=== PATIENT | female | born 1940 | race Caucasian/White ===

== ENCOUNTER 2024-11-20 17:09 | Emergency (ER) | payer OTHER ==
[~2024-11-20] VITALS: Ht 157.5 cm; Wt 69.0 kg
[2024-11-20 17:12] VITALS: TEMP 36.8; O2SAT 99
[2024-11-20 17:56] LABS: BASOPHILS % 0.5 % (0.0-2.0); EOSINOPHILS % 0.7 % (0.0-5.0); HEMATOCRIT. 46.3 % (36.0-48.0); HEMOGLOBIN. 15.6 g/dL (12.0-16.0); LYMPHOCYTES % 7.9 % (20.0-50.0); MEAN PLATELET VOLUME 8.4 fl (7.4-10.4); MONOCYTES % 8.2 % (2.0-8.0); NEUTROPHILS % 82.7 % (40.0-76.0); PLATELET 253 x1000/uL (130-400); RED BLOOD CELL COUNT 5.14 mill/uL (4.2-5.4); RED CELL DISTRIBUTION WIDTH 14.0 % (11.6-14.6)
[2024-11-20 18:10] LABS: CREATININE 1.0 mg/dL (0.6-1.0)
[2024-11-20 18:11] LABS: ETHANOL BLOOD < 10 mg/dL (<10); UREA NITROGEN BLOOD 8 mg/dL (9-23)
[2024-11-20 18:12] LABS: ASPARTATE AMINOTRANSFERASE 24 IU/L (<34); BILIRUBIN DIRECT 0.5 mg/dL (<=3.0)
[2024-11-20 18:13] LABS: BILIRUBIN TOTAL 1.4 mg/dL (0.1-1.0); PROTEIN TOTAL 7.1 g/dL (6.0-8.3)
[2024-11-20 21:33] LABS: TROPONIN I HIGH SENSITIVITY 11 ng/L (3.0-34)
[2024-11-20] MEDS: ASPIRIN 325MG EC TABLET PO ONE (21:39)
[2024-11-20] MEDS: LABETALOL 5MG/ML 4ML INJ IV ONE (22:35)
[2024-11-20 23:20] VITALS: BP 168/97; PULSE 87; RESP 21
== END 2024-11-20 23:55 | disposition short-term general hospital (02) ==
LOC: ER 17:23
DX: I63.9 Cerebral infarction, unspecified (principal); I10 Essential (primary) hypertension; Z86.73 Personal history of transient ischemic attack (TIA), and cerebral infarction without residual deficits
CPT/HCPCS: 80076; 80048; 80320; 82140; 83690; 83735; 85025; 84484; 36415; 71045; 70450; 93005; 96374; 99285; J3490; G0480